=== PATIENT | male | born 1945 | race Caucasian/White ===

== ENCOUNTER 2019-10-13 09:51 | Outpatient (CLI) | payer MEDICARE, BC ==
[2019-10-13] VITALS (17 sets, daily range): BP systolic 121–147; BP diastolic 70–86
== END 2019-10-13 23:59 | disposition home or self-care (01) ==
LOC: CARD DIAG 09:51
PROVIDERS: ATTEND Internal Medicine Interventional Cardiology
DX: R42 Dizziness and giddiness (principal); Z87.891 Personal history of nicotine dependence
CPT/HCPCS: 93660